=== PATIENT | female | born 1965 | race Caucasian/White ===

== ENCOUNTER 2021-01-17 13:33 | Emergency (ER) | payer OTHER, SELFPAY ==
[2021-01-17 13:41] VITALS: BP 151/85; PULSE 101; RESP 18; TEMP 36.3; O2SAT 100
--- NOTE | 2021-01-17 14:56 | ED.SKABFB ---
HPI - Skin/Abscess/Foreign Bdy General Chief complaint: Skin/Abscess/Foreign Body Stated complaint: multiple abcess to face Time Seen by Provider: 01/17/21 14:38 Source: patient Mode of arrival: ambulatory Limitations: no limitations History of Present Illness HPI narrative: This is a 55 year old female that presents to the ER for multiple lesions noted on the arms and face. Reports itchy rash. Reports recent exposure to scabies. Reports she noted lesions on the face today that are painful. Also has a painful lesion on the right arm with redness surrounding. Reports drainage from the areas. Denies fever. Related Data Allergies Allergy/AdvReac Type Severity Reaction Status Date / Time tetracycline Allergy Unknown Unknown Verified 01/17/21 13:45 tramadol Allergy Unknown SAAB Verified 01/17/21 13:45 NEOSPORIN EYE OR EAR DROPS Allergy Unknown Unknown Uncoded 01/17/21 13:45 Review of Systems Review of Systems: Narrative: CONSTITUTIONAL: Denies fever SKIN: Reports rash and itching. All systems reviewed & are unremarkable except as noted in HPI and below PMFSH Past Medical History Medical History (Updated 01/17/21 @ 15:03 by Michell Jesus PA-C) History of COPD History of diabetes mellitus History of hyperlipidemia Social History Social History Gender identity (if verbalized by the patient): Female Exam Narrative: Exam Narrative: GENERAL: Well-appearing, well-nourished, and in no acute distress. HEAD: Normocephalic, atraumatic. EYES: EOMI. EXTREMITIES: Normal range of motion. No edema. SKIN: Warm, dry. Several, small crusted lesions noted on the arms and fingers web space. Lesions noted to the forehead as well. Lesions on the forehead are easily expressed with purulent drainage. Lesion on the right forearm has surrounding erythema and induration, without fluctuance to suggest abscess NEURO: No focal deficits. Alert and oriented x3. PSYCH: Normal mood and affect Course Vital Signs Vital signs: Vital Signs Temperature 97.4 F L 01/17/21 13:41 Pulse Rate 101 H 01/17/21 13:41 Respiratory Rate 18 01/17/21 13:41 Blood Pressure 151/85 H 01/17/21 13:41 Pulse Oximetry 100 01/17/21 13:41 Temperature 97.4 F L 01/17/21 13:41 Pulse Rate 101 H 01/17/21 13:41 Respiratory Rate 18 01/17/21 13:41 Blood Pressure 151/85 H 01/17/21 13:41 Pulse Oximetry 100 01/17/21 13:41 MDM - Skin/Abscess/Foreign Bdy MDM Narrative Medical decision making narrative: Patient presents the emergency department for itchy rash. Reports exposure to scabies. Rash does seem consistent with crusted scabies. Will be started on permethrin cream and oral medication for this. Does appear to be secondarily infected. Lesions on forehead to easily express pus. Has a lesion on the right arm that has surrounding cellulitis, without central fluctance to suggest abscess. Patient will be treated for cellulitis. She is stable and felt appropriate for further outpatient evaluation. She was given warnings to return to the ER Critical Care Time Critical Care Time Critical Care Time: No Discharge Plan Discharge Clinical Impression: Crusted scabies Cellulitis Qualifiers: Site of cellulitis: extremity Site of cellulitis of extremity: upper extremity Laterality: right Qualified Code(s): L03.113 - Cellulitis of right upper limb Patient Disposition: Home, Self-Care Condition: Stable Instructions: Antibiotic Form, Cellulitis (ED), Scabies (ED) Additional Instructions: Return to the emergency department if you experience fever, worsening redness and swelling of your wounds, or any other symptoms that are concerning to you Apply permethrin cream as prescribed. Take oral ivermectin as prescribed. Clindamycin daily as prescribed Follow-up with your primary care doctor Prescriptions: New permethrin 5 % cream 1 applic topical Q48H 7 Days Qty: 60 RF: 0 ivermectin 3 mg tablet 16,800 mcg PO DIRECTED Qty: 20
[2021-01-17 15:26] VITALS: PULSE 89; RESP 21; O2SAT 99
== END 2021-01-17 15:27 | disposition home or self-care (01) ==
PROVIDERS: Emergency Provider Emergency Medicine; PCP Internal Medicine
DX: L03.113 Cellulitis of right upper limb (principal); B86 Scabies; J44.9 Chronic obstructive pulmonary disease, unspecified; E11.9 Type 2 diabetes mellitus without complications; E78.5 Hyperlipidemia, unspecified
CPT/HCPCS: 87070; 87147; 87205; 99283